=== PATIENT | female | born 1960 | race Caucasian/White ===

== ENCOUNTER → 2017-08-29 | Outpatient (CLI) | payer MEDICAID ==
[~2017-08-29] MED LIST: CARV6.252 PO; FENTANYL PF 100 MCG/2ML ONE; HYDR12.58 PO; LISI-170 PO; METF500T4 PO; MIDAZOLAM 1 MG/ML, 5ML ONE; SIMV20TA PO
== END | disposition home or self-care (01) ==
LOC: RAD 10:36
PROVIDERS: ATTEND Physician Assistant Medical
DX: S83.242A Other tear of medial meniscus, current injury, left knee, initial encounter (principal); M25.762 Osteophyte, left knee; M25.462 Effusion, left knee; M65.862 Other synovitis and tenosynovitis, left lower leg; M17.12 Unilateral primary osteoarthritis, left knee; M41.86 Other forms of scoliosis, lumbar region; M43.16 Spondylolisthesis, lumbar region; M51.36 Other intervertebral disc degeneration, lumbar region; M71.38 Other bursal cyst, other site; M48.07 Spinal stenosis, lumbosacral region; M51.37 Other intervertebral disc degeneration, lumbosacral region; M51.26 Other intervertebral disc displacement, lumbar region; G89.29 Other chronic pain; Z90.49 Acquired absence of other specified parts of digestive tract; X58.XXXA Exposure to other specified factors, initial encounter; Y93.89 Activity, other specified; Y92.89 Other specified places as the place of occurrence of the external cause; Y99.8 Other external cause status
CPT/HCPCS: 72110; 72148; 73721; 99156; 99157; J2250; J3010

== ENCOUNTER 2021-04-19 10:57 | Outpatient (CLI) | payer MEDICAID ==
[~2021-04-19 10:57] MED LIST changes: -FENTANYL PF 100 MCG/2ML ONE; -HYDR12.58 PO; +HYDROCHLOROTH12.5 MG PO; +METF500T17 PO; -METF500T4 PO; -MIDAZOLAM 1 MG/ML, 5ML ONE
== END 2021-04-19 23:59 | disposition home or self-care (01) ==
LOC: RAD 10:57
PROVIDERS: ATTEND Chiropractor
DX: Z02.9 Encounter for administrative examinations, unspecified (principal)